=== PATIENT | female | born 1955 | race Caucasian/White ===

== ENCOUNTER 2018-05-11 09:16 | Outpatient (REF) | payer BC, SELFPAY ==
[2018-05-11 21:15] LABS: HCT 38.3 % (36.0-46.0); Mean Corp. HGB Concentration 33.9 g/dL (32.0-36.0); Mean Corpuscular Hemoglobin 29.8 pg (27.0-33.0); Mean Corpuscular Volume 87.8 fL (80-95); Mean Platelet Volume 10.6 fL (8.0-11.0); Platelet Count 191 x1000/uL (130-400); RBC 4.36 m/cumm (4.00-5.20); RBC Distribution Width 12.3 % (11.7-14.6); White Blood Cell Count 3.92 k/cumm (4.4-10.8)
[2018-05-11 22:00] LABS: Cholesterol 251 mg/dL (50-200); HDL Cholesterol 93 mg/dL (40-60); LDL CHOLESTEROL 139 mg/dL (<100); TSH 4.04 uIU/mL (0.358-3.74); Triglyceride 66 mg/dL (30-150); Vitamin B12 1033 pg/mL (193-986)
[2018-05-11 22:53] LABS: Hemoglobin A1C 5.4 % (4.5-6.2)
[2018-05-12 10:54] LABS: Abs Immature Grans 0.01 k/cumm (0.0-0.09); Absolute Basophil Count 0.03 k/cumm (0.0-0.2); Absolute Eosinophil Count 0.22 k/cumm (0.0-0.7); Absolute Lymphocyte Count 1.21 k/cumm (1.2-3.4); Absolute Monocyte Count 0.29 k/cumm (0.11-0.7); Absolute Neutrophil Count 2.06 k/cumm (1.2-6.7); Basophils % 0.8; Eosinophils % 5.8; Immature Grans % 0.3; Lymphocytes % 31.7; Monocytes % 7.6; Neutrophils % 53.8
[2018-05-12 11:36] LABS: FREE T4 0.97 ng/dL (0.76-1.46)
[2018-05-14 10:56] LABS: Thyroglobulin Antibody 15 U/mL (<61); Thyroperoxidase Antibody 31 U/mL (<61)
== END 2018-05-11 09:36 ==
LOC: NCHCN 09:16
PROVIDERS: PCP Nurse Practitioner Family; Visit Provider Nurse Practitioner Family
DX: Z13.21 Encounter for screening for nutritional disorder (principal); Z13.29 Encounter for screening for other suspected endocrine disorder; Z13.1 Encounter for screening for diabetes mellitus; R53.83 Other fatigue; Z13.220 Encounter for screening for lipoid disorders
CPT/HCPCS: 80061; 83721; 85027; 86376; 82607; 83036; 84439; 84443; 85007

== ENCOUNTER 2018-06-22 09:16 | Outpatient (REF) | payer BC, SELFPAY ==
[2018-06-22 21:21] LABS: Abs Immature Grans 0.01 k/cumm (0.0-0.09); Absolute Basophil Count 0.03 k/cumm (0.0-0.2); Absolute Eosinophil Count 0.24 k/cumm (0.0-0.7); Absolute Lymphocyte Count 1.03 k/cumm (1.2-3.4); Absolute Monocyte Count 0.22 k/cumm (0.11-0.7); Basophils % 0.9; HCT 38.7 % (36.0-46.0); HGB 12.9 g/dL (12.0-15.5); Immature Grans % 0.3; Lymphocytes % 29.9; Mean Corp. HGB Concentration 33.3 g/dL (32.0-36.0); Mean Corpuscular Hemoglobin 29.3 pg (27.0-33.0); Mean Corpuscular Volume 87.8 fL (80-95); Mean Platelet Volume 10.7 fL (8.0-11.0); Monocytes % 6.4; Neutrophils % 55.5; Platelet Count 208 x1000/uL (130-400); RBC 4.41 m/cumm (4.00-5.20); RBC Distribution Width 12.6 % (11.7-14.6); White Blood Cell Count 3.45 k/cumm (4.4-10.8)
[2018-06-22 21:23] LABS: Absolute Neutrophil Count 1.91 k/cumm (1.2-6.7)
[2018-06-22 21:47] LABS: TSH (W/Ref FT4) 3.43 uIU/mL (0.358-3.74)
== END 2018-06-22 09:36 ==
LOC: NCHCN 09:16
PROVIDERS: PCP Nurse Practitioner Family; Visit Provider Nurse Practitioner Family
DX: D72.819 Decreased white blood cell count, unspecified (principal); R94.6 Abnormal results of thyroid function studies
CPT/HCPCS: 84443; 85025

== ENCOUNTER 2018-07-13 10:35 | Outpatient (REF) | payer BC, SELFPAY ==
[2018-07-13 20:49] LABS: Absolute Basophil Count 0.02 k/cumm (0.0-0.2); Absolute Eosinophil Count 0.39 k/cumm (0.0-0.7); Absolute Lymphocyte Count 1.26 k/cumm (1.2-3.4); Absolute Monocyte Count 0.24 k/cumm (0.11-0.7); Basophils % 0.6; Eosinophils % 11.1; HCT 41.7 % (36.0-46.0); Lymphocytes % 35.9; Mean Corp. HGB Concentration 33.6 g/dL (32.0-36.0); Mean Corpuscular Hemoglobin 29.2 pg (27.0-33.0); Mean Corpuscular Volume 87.1 fL (80-95); Mean Platelet Volume 10.6 fL (8.0-11.0); Monocytes % 6.8; Neutrophils % 45.6; Platelet Count 195 x1000/uL (130-400); RBC 4.79 m/cumm (4.00-5.20); RBC Distribution Width 12.5 % (11.7-14.6); White Blood Cell Count 3.51 k/cumm (4.4-10.8)
== END 2018-07-13 10:55 ==
LOC: NCHCN 10:35
PROVIDERS: PCP Nurse Practitioner Family; Visit Provider Nurse Practitioner Family
DX: D72.810 Lymphocytopenia (principal)
CPT/HCPCS: 85025

== ENCOUNTER 2018-11-16 09:48 | Outpatient (REF) | payer BC, SELFPAY ==
[2018-11-16 21:04] LABS: Abs Immature Grans 0.01 k/cumm (0.0-0.09); Absolute Basophil Count 0.02 k/cumm (0.0-0.2); Absolute Eosinophil Count 0.27 k/cumm (0.0-0.7); Absolute Lymphocyte Count 1.13 k/cumm (1.2-3.4); Absolute Monocyte Count 0.32 k/cumm (0.11-0.7); Absolute Neutrophil Count 2.24 k/cumm (1.2-6.7); Basophils % 0.5; Eosinophils % 6.8; HCT 39.5 % (36.0-46.0); HGB 13.5 g/dL (12.0-15.5); Immature Grans % 0.3; Lymphocytes % 28.3; Mean Corp. HGB Concentration 34.2 g/dL (32.0-36.0); Mean Corpuscular Hemoglobin 29.7 pg (27.0-33.0); Mean Platelet Volume 10.7 fL (8.0-11.0); Neutrophils % 56.1; Platelet Count 229 x1000/uL (130-400); RBC 4.54 m/cumm (4.00-5.20); RBC Distribution Width 12.2 % (11.7-14.6); White Blood Cell Count 3.99 k/cumm (4.4-10.8)
== END 2018-11-16 10:08 ==
LOC: NCHCN 09:48
PROVIDERS: PCP Nurse Practitioner Family; Visit Provider Nurse Practitioner Family
DX: D72.819 Decreased white blood cell count, unspecified (principal); D72.810 Lymphocytopenia
CPT/HCPCS: 85025

== ENCOUNTER 2018-12-28 10:23 | Outpatient (REF) | payer BC, SELFPAY ==
[2018-12-28 21:49] LABS: Absolute Basophil Count 0.03 k/cumm (0.0-0.2); Absolute Eosinophil Count 0.21 k/cumm (0.0-0.7); Absolute Lymphocyte Count 0.91 k/cumm (1.2-3.4); Absolute Monocyte Count 0.25 k/cumm (0.11-0.7); Absolute Neutrophil Count 2.57 k/cumm (1.2-6.7); Basophils % 0.8; Eosinophils % 5.3; HGB 13.4 g/dL (12.0-15.5); Lymphocytes % 22.9; Mean Corp. HGB Concentration 34.4 g/dL (32.0-36.0); Mean Corpuscular Hemoglobin 29.7 pg (27.0-33.0); Mean Corpuscular Volume 86.5 fL (80-95); Mean Platelet Volume 10.7 fL (8.0-11.0); Monocytes % 6.3; Neutrophils % 64.7; Platelet Count 190 x1000/uL (130-400); RBC 4.51 m/cumm (4.00-5.20); RBC Distribution Width 12.1 % (11.7-14.6); White Blood Cell Count 3.97 k/cumm (4.4-10.8)
== END 2018-12-28 10:43 ==
LOC: NCHCN 10:23
PROVIDERS: PCP Nurse Practitioner Family; Visit Provider Nurse Practitioner Family
DX: D72.819 Decreased white blood cell count, unspecified (principal)
CPT/HCPCS: 85025

== ENCOUNTER 2021-03-24 12:31 | Outpatient (REF) | payer MEDICARE, SELFPAY ==
[2021-03-24 15:30] LABS: Anion Gap 11.2 mmol/L (3-11); BUN 15 mg/dL (7-18); CO2 25.8 mmol/L (21.0-32.0); CREATININE 0.7 mg/dL (0.55-1.02); Calcium 8.7 mg/dL (8.5-10.1); Chloride 103 mmol/L (98-107); Glucose 93 mg/dL (74-106); Potassium 4.3 mmol/L (3.5-5.1); Sodium 140 mmol/L (136-145); TSH 1.72 uIU/mL (0.36-3.74)
== END 2021-03-24 12:32 | disposition home or self-care (01) ==
LOC: NCHCN 12:31
PROVIDERS: PCP Nurse Practitioner Family; Visit Provider Nurse Practitioner Family
DX: R94.6 Abnormal results of thyroid function studies (principal); N20.0 Calculus of kidney
CPT/HCPCS: 80048; 84443

== ENCOUNTER 2021-05-20 17:04 | Outpatient (REF) | payer MEDICARE, SELFPAY ==
[2021-05-20 21:57] LABS: Vitamin D 25 Total 37.8 ng/mL (30-100)
== END 2021-05-20 17:05 | disposition home or self-care (01) ==
LOC: NCHCN 17:04
PROVIDERS: PCP Nurse Practitioner Family; Visit Provider Nurse Practitioner Family
DX: M81.0 Age-related osteoporosis without current pathological fracture (principal)
CPT/HCPCS: 82306

== ENCOUNTER 2022-07-14 12:17 | Outpatient (REF) | payer MEDICARE, SELFPAY ==
[2022-07-14 14:40] LABS: Absolute Basophil Count 0.04 10^3/uL (0.0-0.2); Absolute Eosinophil Count 0.23 10^3/uL (0.0-0.7); Absolute Lymphocyte Count 1.44 10^3/uL (1.2-3.4); Absolute Monocyte Count 0.23 10^3/uL (0.1-0.8); Basophils % 0.9; Eosinophils % 5.3; HCT 42.4 % (36.0-46.0); HGB 14.2 g/dL (11.2-15.7); Lymphocytes % 33.5; MCH 29.3 pg (27.0-33.0); MCHC 33.5 % (32.0-36.0); MCV 87 fL (80-95); MPV 10.6 fL (8.0-11.0); Monocytes % 5.3; Platelet Count 235 10^3/uL (130-400); RBC 4.85 10^6/uL (3.93-5.22); RDW 12.1 % (11.7-14.6)
[2022-07-14 14:44] LABS: Absolute Neutrophil Count 2.37 10^3/uL (1.2-6.7)
[2022-07-14 15:06] LABS: ALT 34 U/L (14-59); AST 21 U/L (15-37); Albumin 4.3 g/dL (3.4-5.0); Alkaline Phosphatase 42 U/L (46-116); Anion Gap 10.7 mmol/L (3-11); BUN 18 mg/dL (7-18); Bilirubin, Total 0.4 mg/dL (0.2-1.0); CO2 24.3 mmol/L (21.0-32.0); CREATININE 0.8 mg/dL (0.55-1.02); Calcium 8.8 mg/dL (8.5-10.1); Calculated LDL 173 mg/dL (<100); Chloride 105 mmol/L (98-107); Cholesterol 269 mg/dL (<200); Estimated GFR 80.71 (mL/min/1.73m2); Glucose 100 mg/dL (74-106); HDL Cholesterol 82 mg/dL (40-60); Potassium 4.4 mmol/L (3.5-5.1); Sodium 140 mmol/L (136-145); Total Protein 7.2 g/dL (6.4-8.2); Triglyceride 73 mg/dL (<150)
== END 2022-07-14 12:18 | disposition home or self-care (01) ==
LOC: NCHCN 12:17
PROVIDERS: PCP Nurse Practitioner Family; Visit Provider Nurse Practitioner Family
DX: E78.5 Hyperlipidemia, unspecified (principal); D72.819 Decreased white blood cell count, unspecified; M81.0 Age-related osteoporosis without current pathological fracture; N95.1 Menopausal and female climacteric states
CPT/HCPCS: 80053; 80061; 84443; 85025

== ENCOUNTER 2022-09-15 14:46 | Outpatient (REF) | payer MEDICARE, SELFPAY ==
[2022-09-15 14:30] LABS: Absolute Basophil Count 0.04 10^3/uL (0.0-0.2); Absolute Eosinophil Count 0.31 10^3/uL (0.0-0.7); Absolute Neutrophil Count 2.69 10^3/uL (1.2-6.7); Basophils % 0.8; Eosinophils % 6.3; HCT 40.2 % (36.0-46.0); HGB 13.7 g/dL (11.2-15.7); Lymphocytes % 32.4; MCH 29.7 pg (27.0-33.0); MCHC 34.1 % (32.0-36.0); MCV 87 fL (80-95); MPV 10.7 fL (8.0-11.0); Monocytes % 6.1; Neutrophils % 54.4; Platelet Count 211 10^3/uL (130-400); RBC 4.62 10^6/uL (3.93-5.22); RDW-SD 38.5 fL; WBC 4.94 10^3/uL (4.4-10.8)
[2022-09-15 14:33] LABS: ESR 3 mm/hr (0-30)
[2022-09-15 14:38] LABS: Anion Gap 7.8 mmol/L (3-11); BUN 14 mg/dL (7-18); CO2 27.2 mmol/L (21.0-32.0); CREATININE 0.9 mg/dL (0.55-1.02); Calcium 8.9 mg/dL (8.5-10.1); Chloride 106 mmol/L (98-107); Estimated GFR 70.07 (mL/min/1.73m2); Glucose 102 mg/dL (74-106); Potassium 4.4 mmol/L (3.5-5.1); Sodium 141 mmol/L (136-145)
[2022-09-15 14:56] LABS: C-Reactive Protein 0.12 mg/dL (0.0-0.3)
== END 2022-09-15 14:47 | disposition home or self-care (01) ==
LOC: NCHCN 14:46
PROVIDERS: PCP Nurse Practitioner Family; Visit Provider Family Medicine
DX: K13.79 Other lesions of oral mucosa (principal)
CPT/HCPCS: 80048; 85652; 85025; 86140

== ENCOUNTER 2023-07-20 10:19 | Outpatient (REF) | payer MEDICARE, SELFPAY ==
--- NOTE | 2023-07-20 09:30 | PAPFT_PTH ---
PATIENT: Gianna Zambrano LOC: [facility]#:[id number] AGE/SX: 68/F ROOM: RE07/20/[address]: Cielo Kincaid : 1955 BED: DIS: 07/20/2023 SPEC #: [id number] RECD: 07/20/23 14:47 STATUS: GÓMEZ MALDONADO #: [id number] GERI: 07/20/23 09:[address]: Cielo Verdin DEPT: [facility] Cytology RECD BY: Karla Blackmon Tissues: 1 - CX/ENDOCX FOR PAP SMEARS Procedures: PAP THIN PREP/[facility] Screening HPV DNA PROBE Comments: [id number]
[2023-07-20 15:56] LABS: HCT 42.1 % (36.0-46.0); HGB 13.9 g/dL (11.2-15.7); MCH 29.3 pg (27.0-33.0); MCV 89 fL (80-95); MPV 11.2 fL (8.0-11.0); Platelet Count 230 10^3/uL (130-400); RBC 4.74 10^6/uL (3.93-5.22); RDW 12.2 % (11.7-14.6); RDW-SD 39.8 fL; WBC 4.43 10^3/uL (4.4-10.8)
[2023-07-20 16:31] LABS: Anion Gap 2.2 mmol/L (3-11); BUN 13 mg/dL (7-18); CO2 27.8 mmol/L (21.0-32.0); Calcium 9.1 mg/dL (8.5-10.1); Calculated LDL 147 mg/dL (<100); Chloride 107 mmol/L (98-107); Cholesterol 242 mg/dL (<200); Estimated GFR 61.36 (mL/min/1.73m2); Glucose 103 mg/dL (74-106); HDL Cholesterol 76 mg/dL (40-60); Potassium 4.2 mmol/L (3.5-5.1); Sodium 137 mmol/L (136-145); TSH 3.72 uIU/Ml (0.36-3.74); Triglyceride 99 mg/dL (<150)
== END 2023-07-20 10:20 | disposition home or self-care (01) ==
LOC: NCHCN 10:19
PROVIDERS: PCP Nurse Practitioner Family; Visit Provider Nurse Practitioner Family
DX: D72.819 Decreased white blood cell count, unspecified (principal); E03.9 Hypothyroidism, unspecified; E66.9 Obesity, unspecified; Z11.51 Encounter for screening for human papillomavirus (HPV); Z01.419 Encounter for gynecological examination (general) (routine) without abnormal findings
CPT/HCPCS: 80048; 80061; 85027; 88142; 84443; 87624

== ENCOUNTER 2023-11-16 20:51 | Outpatient (REF) | payer MEDICARE, SELFPAY ==
[2023-11-16 17:39] LABS: HGB 14.3 g/dL (11.2-15.7); MCH 29.7 pg (27.0-33.0); MCHC 33.3 % (32.0-36.0); MCV 89 fL (80-95); MPV 11.3 fL (8.0-11.0); Platelet Count 238 10^3/uL (130-400); RBC 4.82 10^6/uL (3.93-5.22); RDW 12.3 % (11.7-14.6); RDW-SD 40.4 fL; WBC 4.37 10^3/uL (4.4-10.8)
[2023-11-16 17:51] LABS: ESR 7 mm/hr (0-30)
[2023-11-16 18:37] LABS: Vitamin D 25 Total 34.6 ng/mL (30-100)
[2023-11-16 18:55] LABS: C-Reactive Protein < 0.50 mg/dL (<or=0.5)
[2023-11-17 17:56] LABS: Rheumatoid Factor 9.6 IU/mL (<12.0)
[2023-11-20 10:17] LABS: Cyclic Citrullinated Peptide <2.5 U/mL (<5.0)
[2023-11-20 12:45] LABS: Ro60 Ab, IgG <7.0 CU (<20.0); SS-A/Ro, IgG <2.3 CU (<20.0); SS-B (La) Ab, IgG <3.3 CU (<20.0)
[2023-11-20 14:24] LABS: ANA Interpretation Negative (Negative)
== END 2023-11-16 20:52 | disposition home or self-care (01) ==
LOC: NCHCN 20:51
PROVIDERS: PCP Nurse Practitioner Family; Visit Provider Nurse Practitioner Family
DX: M81.0 Age-related osteoporosis without current pathological fracture (principal); D72.819 Decreased white blood cell count, unspecified
CPT/HCPCS: 82306; 85027; 85652; 86200; 86038; 86140; 86235; 86431

== ENCOUNTER 2025-01-16 10:22 | Outpatient (REF) | payer MEDICARE, SELFPAY ==
[2025-01-16 15:22] LABS: Abs Immature Grans 0.01 10^3/uL (0.0-0.06); HCT 41.5 % (36.0-46.0); HGB 14.1 g/dL (11.2-15.7); Immature Grans % 0.2 %; MCH 29.9 pg (27.0-33.0); MCHC 34.0 % (32.0-36.0); MCV 88 fL (80-95); MPV 11.0 fL (8.0-11.0); Platelet Count 221 10^3/uL (130-400); RBC 4.71 10^6/uL (3.93-5.22); RDW 12.2 % (11.7-14.6); RDW-SD 39.8 fL; WBC 4.32 10^3/uL (4.4-10.8)
[2025-01-16 15:52] LABS: TSH 3.34 uIU/mL (0.55-4.78)
[2025-01-16 15:58] LABS: ALT 25 U/L (10-49); AST 26 U/L (<34); Albumin 4.5 g/dL (3.4-5.0); Alkaline Phosphatase 37 U/L (46-116); Anion Gap 6.4 mmol/L (3-11); BUN 13 mg/dL (9-23); Bilirubin, Total 0.60 mg/dL (0.2-1.2); CO2 26.6 mmol/L (20.0-31.0); Calcium 9.2 mg/dL (8.3-10.6); Chloride 108 mmol/L (98-107); Cholesterol 227 mg/dL (<200); Glucose 100 mg/dL (74-106); HDL Cholesterol 78 mg/dL (>40); Potassium 4.2 mmol/L (3.5-5.1); Sodium 141 mmol/L (136-145); Total Protein 6.9 g/dL (5.7-8.2)
[2025-01-16 16:34] LABS: Hemoglobin A1C 5.4 % (<5.7)
== END 2025-01-16 10:23 | disposition home or self-care (01) ==
LOC: NCHCN 10:22
PROVIDERS: PCP Nurse Practitioner Family; Visit Provider Nurse Practitioner Family
DX: Z13.228 Encounter for screening for other metabolic disorders (principal); Z13.1 Encounter for screening for diabetes mellitus; Z13.29 Encounter for screening for other suspected endocrine disorder; R53.83 Other fatigue; D72.819 Decreased white blood cell count, unspecified
CPT/HCPCS: 80053; 80061; 83036; 84443; 85025